=== PATIENT | male | born 1990 | race Hispanic/Latino ===

== ENCOUNTER 2022-09-07 10:13 | Emergency (ER) | payer OTHER ==
[~2022-09-07] VITALS: Ht 165.1 cm; Wt 79.4 kg
[2022-09-07 11:15] VITALS: BP 124/75; PULSE 62; RESP 16
== END 2022-09-07 12:18 | disposition home or self-care (01) ==
LOC: EDH 10:13
DX: Q82.9 Congenital malformation of skin, unspecified (principal)
CPT/HCPCS: 99281